=== PATIENT | female | born 1985 | race African-American/Black ===

== ENCOUNTER 2020-10-10 04:40 | Emergency (ER) | payer MEDICARE, OTHER ==
[~2020-10-10] VITALS: Ht 170.2 cm; Wt 47.6 kg
[2020-10-10 07:21] VITALS: BP 123/80
== END 2020-10-10 07:25 | disposition home or self-care (01) ==
LOC: EDUNIT# 04:40 → ER 04:40 → EDBD 04:40 → ER 07:25
DX: R07.89 Other chest pain (principal)
CPT/HCPCS: 71045; 93005

== ENCOUNTER 2023-05-20 11:14 | Emergency (ER) | payer MEDICARE, OTHER ==
[~2023-05-20] VITALS: Ht 180.3 cm; Wt 50.0 kg
[~2023-05-20 11:14] MED LIST: HYDR-4902 PO; IBUP1TAB5 PO
[2023-05-20 12:24] VITALS: BP 123/77; PULSE 84; RESP 18; TEMP 98.3; O2SAT 96
[2023-05-20] MEDS: TETRACAINE HCL 0.5% OPTH(EYE) SOLN 4ML LEFTEYE ONE ×2 (13:17→13:48)
[2023-05-20] MEDS ORDERED: METH-1181 PO (13:56)
[2023-05-20] MEDS ORDERED: IBUP-1454 PO (13:56)
[2023-05-20] MEDS ORDERED: KETOROLAC TROMETH 30 MG/ML 1ML VIAL IV ONE (14:00)
== END 2023-05-20 14:02 | disposition home or self-care (01) ==
LOC: EDBD 11:14 → ER 11:14
DX: S16.1XXA Strain of muscle, fascia and tendon at neck level, initial encounter (principal); S70.11XA Contusion of right thigh, initial encounter; E03.9 Hypothyroidism, unspecified; F17.210 Nicotine dependence, cigarettes, uncomplicated; Z79.1 Long term (current) use of non-steroidal anti-inflammatories (NSAID); Z79.899 Other long term (current) drug therapy; V49.9XXA Car occupant (driver) (passenger) injured in unspecified traffic accident, initial encounter; Y93.89 Activity, other specified; Y92.410 Unspecified street and highway as the place of occurrence of the external cause; Y99.8 Other external cause status
CPT/HCPCS: 72040; 96374; 99283; J1885

== ENCOUNTER 2023-10-29 14:30 | Emergency (ER) | payer MEDICARE, OTHER ==
[~2023-10-29] VITALS: Ht 172.7 cm; Wt 47.8 kg
[~2023-10-29 14:30] MED LIST changes: +IBUP-1454 PO; +METH-1181 PO
[2023-10-29 18:55] VITALS: BP 109/74; PULSE 110; TEMP 98.2
[2023-10-29] MEDS ORDERED: ALBUTEROL SULF 2.5 MG/0.5ML(0.5%) NEB SOLN NEB ONE (19:15)
[2023-10-29] MEDS ORDERED: IPRATROPIUM BROM 0.5 MG/2.5ML INH SOL NEB ONE (19:15)
[2023-10-29] MEDS ORDERED: guaiFENesin-CODEINE Liq 5 ML UD PO ONE (19:15)
[2023-10-29] MEDS ORDERED: DexAMETHasone SOD PHOS 10MG/1ML VIAL INJ IM ONE (19:15)
[2023-10-29] MEDS ORDERED: cefTRIAXone SOD 1,000 MG VL IM ONE (19:15)
[2023-10-29] MEDS ORDERED: ALBU108A5 IN (19:17)
[2023-10-29] MEDS ORDERED: BENZ200C64 PO (19:17)
[2023-10-29] MEDS ORDERED: AUG875T PO (19:17)
[2023-10-29] MEDS ORDERED: PRED20TA2 PO (19:17)
[2023-10-29 19:28] VITALS: RESP 19; O2SAT 97
== END 2023-10-29 15:41 | disposition home or self-care (01) ==
LOC: ER 14:30
DX: J18.9 Pneumonia, unspecified organism (principal); F17.210 Nicotine dependence, cigarettes, uncomplicated; F15.90 Other stimulant use, unspecified, uncomplicated; Z79.899 Other long term (current) drug therapy
CPT/HCPCS: 71045; 94640; 96372; 99284; J0696; J1100; J7644

== ENCOUNTER 2024-12-10 11:24 | Emergency (ER) | payer MEDICAID, OTHER ==
[~2024-12-10] VITALS: Ht 162.6 cm; Wt 53.0 kg
[~2024-12-10 11:24] MED LIST changes: +ALBU108A5 IN; +AUG875T PO; +BENZ200C64 PO; +PRED20TA2 PO
--- NOTE | 2024-12-10 11:35 | ECG ---
[facility] Test Date: 2024-12-10 Test Time: 11:34:18 Pat Name: FLETCHER RAMIREZ Department: ER Room: Gender: F Human Resource Management Instructor: MANNY : 1985 Requested By: JONAS CARROLL Order Number: [id number] Reading MD: Measurements Intervals [place] Rate: 55 P: 0 MO: 209 QRS: 79 QRSD: 71 T: 49 QT: 440 QTc: 421 Interpretive Statements Sinus rhythm Borderline prolonged MO interval RSR' in V1 or V2, probably normal variant Please click the below link to view image of tracing.
[2024-12-10 11:56] LABS: Hemoglobin 14.7 g/dL (12.2-16.2)
[2024-12-10 11:59] LABS: Hematocrit 42.3 % (36.0-46.0); Mean Corpuscular Hemoglobin 34.5 pg (28.0-32.0); Mean Corpuscular Hgb Conc. 34.7 g/dL (32.0-36.0); Mean Corpuscular Volume 99.6 fL (80.0-100.0); Platelet Count (auto) 164 10^3/uL (140-450); Red Blood Cells 4.25 10^6/uL (4.0-5.20); Red Cell Distribution Width 14.1 % (11.8-14.3); White Blood Cell 5.9 10^3/uL (4.4-10.8)
--- NOTE | 2024-12-10 12:01 | ED.PDOC ---
HPI Comments 39-year-old female who comes in with chief complaint of left-sided chest pain. The patient states that she has never had this pain in the past. The pain is substernal and rated as an 8/10. She states that the pain started when she woke up this morning. She denies any nausea, vomiting or cough. She is complaining of some generalized weakness and states that it feels like it is hard to take a deep breath. Chief Complaint: Chest Pain Time Seen by MD: 11:31 Primary Care Provider: none Reviewed Notes: Nurses Notes, Medications, Allergies (NKDA) Allergies: Coded Allergies: NO KNOWN ALLERGIES (Unverified , 10/10/20) Home Meds Active Scripts Ciprofloxacin Hcl (Cipro) 500 Mg Tab, 1 TAB PO BID, #14 TAB Prov:JONAS CARROLL MD 12/10/24 Benzonatate (Benzonatate) 200 Mg Cap, 1 CAP PO TID, #30 CAP As needed for cough Prov:LUIS FERNANDO HOLDER Q SORT LINE WORKER 10/29/23 Albuterol Sulfate (Albuterol Sulfate Hfa) 108 Mcg/Act Aer, 1 PUFF IN Q4HPRN PRN, #1 INH As needed for cough nasal congestion shortness of breath or wheeze Prov:LUIS FERNANDO HOLDER Q SORT LINE WORKER 10/29/23 Prednisone (Prednisone) 20 Mg Tab, 1 TAB PO DAILY for 5 Days, #5 TAB Start tomorrow with food Prov:LUIS FERNANDO HOLDER Q SORT LINE WORKER 10/29/23 Amoxicillin & Pot Clavulanate (AUGMENTIN TABLET) 875 Mg Tb, 1 TAB PO BID for 10 Days, #20 TAB Prov:LUIS FERNANDO HOLDER Q SORT LINE WORKER 10/29/23 Methocarbamol (Methocarbamol) 500 Mg Tab, 500 MG PO BID, #20 TAB Prov:ALEXUS DOCKERY 05/20/23 Ibuprofen (Ibuprofen) 600 Mg Tab, 1 TAB PO TID, #30 TAB Prov:ALEXUS DOCKERY 05/20/23 Hydrocodone-Acetaminophen (Hydrocodone Bitartrate/AC 5-325 mg) 1 Tab Tab, 1 TAB PO Q6HPRN PRN, #12 TAB 0 Refills Prov:RITA DHALIWAL 12/26/22 Ibuprofen Micronized (Ibuprofen) 600 Mg Tab, 600 MG PO Q8HPRN PRN, #30 TAB 0 Refills Prov:RITA DHALIWAL JEWEL FLAT SURFACER 12/26/22 Information Source: Patient Mode of Arrival: Ambulatory Severity: Moderate Timing: Hours Duration: Since onset Prehospital treatment: None Location: Substernal Radiation: No Radiation Quality: Sharp Onset: At Rest Cardiac Risk Factors: Smoker PE Risk Factors: None History of: None Modifying Factors: Nothing Associated Signs and Symptoms: Palpitations Past Medical History PAST MEDICAL HISTORY: Thyroid Surgical History: Denies all surgeries CERTIFIED FAMILY MEDIATOR History: No Pertinent CERTIFIED FAMILY MEDIATOR History Family History Family History: Family hx of Cancer Social History Smoker: Cigarettes Alcohol: Occasionally Drugs: Marijuana Lives In: Home Constitutional: denies: chills, diaphoresis, fatigue, fever, malaise, sweats, weakness, others EENTM: denies: blurred vision, double vision, ear bleeding, ear discharge, ear drainage, ear pain, ear ringing, eye pain, eye redness, hearing loss, mouth pain, mouth swelling, nasal discharge, nose bleeding, nose congestion, nose pain, photophobia, tearing, throat pain, throat swelling, voice changes, others Respiratory: denies: cough, hemoptysis, orthopnea, SOB at rest, shortness of breath, SOB with excertion, stridor, wheezing, others Cardiovascular: reports: chest pain; denies: dizzy spells, diaphoresis, Dyspnea on exertion, edema, irregular heart beat, left arm pain, lightheadedness, palpitations, PND, syncope, others Gastrointestinal: denies: abdomen distended, abdominal pain, blood streaked bowels, constipated, diarrhea, dysphagia, difficulty swallowing, hematemesis, melena, nausea, poor appetite, poor fluid intake, rectal bleeding, rectal pain, vomiting, others Genitourinary: denies: abnormal vagina bleeding, burning, dyspareunia, dysuria, flank pain, frequency, hematuria, incontinence, pain, , vagina discharge, urgency, others Neurological: denies: dizziness, fainting, headache, left sided numbness, left sided weakness, numbness, paresthesia, pre-existing deficit, right sided numbness, right sided weakness, seizure, speech problems, tingling, tremors, weakness, others Musculoskeletal: denies: back pain, gout, joint pain, joint swelling, muscle pain, muscle stiffness, neck pain, others Integumetry: denies: bruises, change in color, change in hair/nails, dryness, laceration, lesions, lumps, rash, wounds, others Allergic/Immunocompromised: denies: Difficulty Healing, Frequent Infections, Hives, Itching, others Hematologic/Lymphatic: denies: anemia, blood clots, easy bleeding, easy bruising, swollen glands, others Endocrine: denies: excessive hunger, excessive sweating, excessive thirst, excessive urination, flushing, intolerance to cold, intolerance to heat, unexplained weight gain, unexplained weight loss, others Psychiatric: denies: anxiety, bipolar disorder, depression, hopeless, panic disorder, schizophrenia, sleepless, suicidal, others Physical Exam General Appearance: Mild Distress, Thin HEENT: Normal ENT Inspection, Pharynx Normal, TMs Normal Neck: Full Range of Motion, Non-Tender, Normal, Normal Inspection Respiratory: Lungs Clear, No Accessory Muscle Use, No Respiratory Distress, Normal Breath Sounds, Other (Tenderness to the left chest) Cardiovascular: Bradycardia, No Edema, No JVD, No Murmur, No Gallop Breast Exam: Deferred Gastrointestinal: No Organomegaly, Non Tender, No Pulsatile Mass, Normal Bowel Sounds, Soft Genitalia: Deferred Pelvic: Deferred Rectal: Deferred Extremities: No calf tenderness, Normal capillary refill, Normal inspection, Normal range of motion, Non-tender, No pedal edema Musculoskeletal : Apperance: Normal Neurologic: Alert, retail business development manager II-XII nml as Tested, No Motor Deficits, Normal Affect, Normal Mood, No Sensory Deficits Cerebellar Function: Normal Reflexes: Normal Skin: Dry, Normal Color, Warm Lymphatic: No Adenopathy EKG EKG : Pulse Rate (adult): 55 [place]: Normal Cardiac Rhythm: NSR Block: None ST: Nonsp Was a procedure done? Was a procedure done?: No CP Differential Dx Differential Diagnosis: Angina, [place], Pulmonary Embolus Differential Diagnosis: CHF Differential Diagnosis: Pericarditis X-Ray, Labs, Meds, VS Vital Signs Date Time Temp Pulse Resp B/P (MAP) Pulse Ox O2 Delivery O2 Flow Rate FiO2 12/10/24 15:53 54 14 112/66 12/10/24 15:02 67 17 104/73 12/10/24 14:40 98.3 67 17 104/73 (83) 100 98.3 12/10/24 12:24 55 12/10/24 12:20 Room Air* 0 21 12/10/24 12:13 98.3 62 18 104/64 (77) 96 98.3 12/10/24 11:40 97.9 66 17 130/74 (92) 100 12/10/24 11:34 55 Lab Test 12/10/24 12:42 12/10/24 12:15 12/10/24 11:35 Range/Units Troponin I High Sensitivity < 3 L < 3 L </=34 ng/L Urine Color Yellow Yellow Urine Clarity Cloudy H Clear Urine pH 7.5 5.0-9.0 Urine Specific [place] 1.017 1.001-1.035 Urine Protein Trace H Negative Urine Ketones Negative Negative Urine Blood 2+ H Negative /uL Urine Nitrite Negative Negative Urine Bilirubin Negative Negative Urine Urobilinogen Normal Negative mg/dL Urine Leukocyte Esterase 2+ Negative /uL Urine RBC 7 0 - 4 /hpf Urine Microscopic WBC 43 H 0-5 /HPF Urine Squamous Epithelial Cells Many <5 /hpf Urine Bacteria Mod H None Seen /hpf Urine Glucose Normal Normal mg/dL White Blood Count 5.9 4.4-10.8 10^3/uL Red Blood Count 4.25 4.0-5.20 10^6/uL Hemoglobin 14.7 12.2-16.2 g/dL Hematocrit 42.3 36.0-46.0 % Mean Corpuscular Volume 99.6 80.0-100.0 fL Mean Corpuscular Hemoglobin 34.5 H 28.0-32.0 pg Mean Corpuscular Hemoglobin Concent 34.7 32.0-36.0 g/dL Red Cell Distribution Width 14.1 11.8-14.3 % Platelet Count 164 140-450 10^3/uL Mean Platelet Volume 9.0 6.9-10.8 fL Neutrophils (%) (Auto) 37.0-80.0 % Lymphocytes (%) (Auto) 10.0-50.0 % Monocytes (%) (Auto) 0.0-12.0 % Basophils (%) (Auto) 0.0-2.0 % Neutrophils # (Auto) 1.6-8.6 10 ^3/uL Lymphocytes # (Auto) 0.4-5.4 10 ^3/uL Monocytes # (Auto) 0-1.3 10 ^3/uL Differential Total Cells Counted 100.0 100 Neutrophils % (Manual) 27 L 37.0-80.0 Band Neutrophils % (Manual) 0 Lymphocytes % (Manual) 61 H 10.0-50.0 Monocytes % (Manual) 10 0-12 Eosinophils % (Manual) 1 0-7 Basophils % (Manual) 0 0.0-2.0 Metamyelocytes % (manual) 0 Myelocytes % (Manual) 0 Promyelocytes % (Manual) 0 Blast Cells % (Manual) 0 Reactive Lymphocytes 1 Platelet Estimate Adequate Red Blood Cell Morphology Normal D-Dimer, Quantitative < 0.19 0.0-0.49 mg/L FEU Sodium Level 140 136-145 mmol/L Potassium Level 3.7 3.5-5.1 mmol/L Chloride Level 110 H 98-107 mmol/L Carbon Dioxide Level 28 20-31 mmol/L Anion Gap 2 L 5-15 Blood Urea Nitrogen 8 L 9-23 mg/dL Creatinine 0.77 0.550-1.02 mg/dL Glomerular Filtration Rate Calc 99 >90 mL/min BUN/Creatinine Ratio 10.4 10.0-20.0 Serum Glucose 82 74-106 mg/dL Calcium Level 9.7 8.7-10.4 mg/dL Current Medications Medications (Trade) Dose Ordered Sig/Dionne Route Start Time Stop Time Status Last Admin Aspirin 162 mg ONCE ONCE PO 12/10/24 11:45 12/10/24 11:46 DC 12/10/24 12:17 Morphine Sulfate 4 mg ONCE ONCE IV 12/10/24 14:00 12/10/24 14:01 DC 12/10/24 15:02 Ondansetron HCl (Zofran) 4 mg ONCE ONCE IV 12/10/24 14:00 12/10/24 14:01 DC 12/10/24 14:58 Ceftriaxone Sodium 50 ml @ 100 mls/hr ONCE ONCE IV 12/10/24 15:15 12/10/24 15:44 DC 12/10/24 15:18 The chest x-ray is negative The patient was given morphine for the pain and Zofran for the nausea The patient was also given aspirin 162 mg by mouth The patient states that she is feeling much better at this time. The chemistry panel is within normal limits The CBC is within normal limits The urine test is positive for UTI The patient was being discharged with a diagnosis of musculoskeletal chest pain as well as UTI Images Reviewed?: Images reviewed and evaluated by me Time of 1ST Reevaluation: 15:58 Reevaluation 1ST: Improved Patient Education/Counseling: Diagnosis, Treatment, Prognosis, Need For Follow Up Family Education/Counseling: No Family Present Departure 1 Departure Time of Disposition: 15:58 Impression: Primary Impression: UTI (urinary tract infection) Qualified Codes: N30.00 - Acute cystitis without hematuria Additional Impression: Musculoskeletal chest pain Disposition: 01 HOME / SELF CARE / HOMELESS Condition: Fair e-Prescriptions Ciprofloxacin Hcl (Cipro) 500 Mg Tab 1 TAB PO BID, #14 TAB Prov: JONAS CARROLL MD 12/10/24 Discharged With: Self Critical Care Note Critical Care Time?: No Stability Stability form required: No Heart Score Heart Score: Heart Score Response (Comments) Value History Slightly Suspicious 0 EKG Normal 0 Age <45 0 Risk Factors 1 or 2 risk factors 1 Troponin Normal limit 0 Total 1 JONAS CARROLL MD Dec 10, 2024 12:01
[2024-12-10 12:04] LABS: Potassium 3.7 mmol/L (3.5-5.1); Sodium 140 mmol/L (136-145)
[2024-12-10 12:05] LABS: Anion Gap 2 (5-15); Calcium 9.7 mg/dL (8.7-10.4); Carbon Dioxide 28 mmol/L (20-31)
[2024-12-10 12:06] LABS: Chloride 110 mmol/L (98-107)
[2024-12-10 12:10] LABS: BUN/Creatinine Ratio 10.4 (10.0-20.0); Band Neutrophils % (manual) 0; Basophils % (manual) 0 (0.0-2.0); Blast Cells 0; Glucose 82 mg/dL (74-106); Metamyelocytes % 0; Myelocytes % 0; Promyelocytes % 0
[2024-12-10 12:12] LABS: Blood Urea Nitrogen 8 mg/dL (9-23)
[2024-12-10] MEDS: ASPirin 81 mg TAB PO ONE (12:17)
--- NOTE | 2024-12-10 12:26 | ECG ---
[facility] Test Date: 2024-12-10 Test Time: 12:24:31 Pat Name: FLETCHER RAMIREZ Department: ER Room: Gender: F Security Orderly: WONG : 1985 Requested By: JONAS CARROLL Order Number: [id number] Reading MD: Measurements Intervals [place] Rate: 55 P: 58 [place]: 172 QRS: 67 QRSD: 80 T: 55 QT: 448 QTc: 429 Interpretive Statements Sinus rhythm RSR' in V1 or V2, probably normal variant ST elevation, consider inferior injury Please click the below link to view image of tracing.
--- NOTE | 2024-12-10 12:27 | DVH ---
EXAM: XY CHEST TWO VIEWS ROUTINE HISTORY: cp COMPARISON: Chest x-ray dated 10/29/2023. TECHNIQUE: Frontal and lateral views of the chest were performed. FINDINGS: No pneumothorax, pulmonary edema, pleural effusions, or consolidative infiltrates. The lungs are hype rexpanded. The heart is not enlarged. No fractures are identified about the bony thorax. There is th oracic dextroscoliosis. IMPRESSION: No acute intrathoracic process.
[2024-12-10 12:35] LABS: Eosinophils % (manual) 1 (0-7); Lymphocytes % (manual) 61 (10.0-50.0); Monocytes % (manual) 10 (0-12); Platelet Estimate Adequate; RBC Morphology Normal; Reactive Lymphocytes 1
[2024-12-10 13:08] LABS: Urine Bacteria MOD /hpf (None Seen); Urine Blood 2+ /uL (Negative); Urine Protein, UAD TRACE (Negative); Urine Specific Gravity 1.017 (1.001-1.035); Urine Squamous Epithelial Cell MANY /hpf (<5); Urine Urobilinogen Normal (Negative); Urine WBC 43 /HPF (0-5); Urine pH 7.5 (5.0-9.0)
[2024-12-10 13:11] LABS: Urine Color Yellow (Yellow)
[2024-12-10 13:12] LABS: Urine Clarity Cloudy (Clear)
[2024-12-10 14:40] VITALS: TEMP 98.3; O2SAT 100
[2024-12-10] MEDS: ONDANSETRON HCL 4 MG/2 ML VIAL IV ONE (14:58)
[2024-12-10] MEDS: MORPHINE SULFATE 4 MG/ML SYR/VIAL IV ONE (15:02)
[2024-12-10] MEDS: cefTRIAXone 1GM/50ML D5W 50 ML IV ONE (15:18)
[2024-12-10 15:53] VITALS: BP 112/66; RESP 14
[2024-12-10 15:59] VITALS: PULSE 55
[2024-12-10] MEDS ORDERED: CIPR-173 PO (16:00)
== END 2024-12-10 16:26 | disposition home or self-care (01) ==
LOC: ER 11:24
DX: N39.0 Urinary tract infection, site not specified (principal); R07.89 Other chest pain; E03.9 Hypothyroidism, unspecified; F17.210 Nicotine dependence, cigarettes, uncomplicated; F12.90 Cannabis use, unspecified, uncomplicated; Z79.899 Other long term (current) drug therapy
CPT/HCPCS: 36415; 71046; 80048; 81001; 84484; 85007; 85027; 85379; 93005; 96365; 96375; 99285; J0696; J2270; J2405

== ENCOUNTER 2025-03-18 06:05 | Inpatient (IN) | payer MEDICAID ==
[~2025-03-18] VITALS: Ht 170.2 cm; Wt 54.0 kg
[~2025-03-18 06:05] MED LIST changes: +CIPR-173 PO
--- NOTE | 2025-03-18 06:21 | ED.PDOC ---
History of Present Illness HPI Comments 40-year-old female with no reported PMHx brought in by EMS presents with a chief complaint of chest pain x onset 0200 this morning. Patient states that her pain is localized to her substernal region, nonradiating, describes as sharp, and rates her pain a 8/10. Patient mentions that she was asleep when onset of symptoms began and woke her up. Patient was given ASA IV and Fentanyl IV by EMS en route along with IV fluids. Patients EKG showed Acute ND per EMS and their repeat showed mild ST elevation. [facility] EKG was performed on arrival and was sent to STEMI doctor, Dr. Beck, who ruled out a STEMI. Chief Complaint: Chest Pain Time Seen by MD: 06:08 Primary Care Provider: none Reviewed Notes: Medications, Allergies Allergies: Coded Allergies: NO KNOWN ALLERGIES (Unverified , 10/10/20) Home Meds Active Scripts Ciprofloxacin Hcl (Cipro) 500 Mg Tab, 1 TAB PO BID, #14 TAB Prov:JONAS CARROLL MD 12/10/24 Benzonatate (Benzonatate) 200 Mg Cap, 1 CAP PO TID, #30 CAP As needed for cough Prov:LUIS FERNANDO HOLDER Q TALENT ACQUISITION RELATIONSHIP MANAGER 10/29/23 Albuterol Sulfate (Albuterol Sulfate Hfa) 108 Mcg/Act Aer, 1 PUFF IN Q4HPRN PRN, #1 INH As needed for cough nasal congestion shortness of breath or wheeze Prov:FERNIE HOLDERA Q TALENT ACQUISITION RELATIONSHIP MANAGER 10/29/23 Prednisone (Prednisone) 20 Mg Tab, 1 TAB PO DAILY for 5 Days, #5 TAB Start tomorrow with food Prov:LUIS FERNANDO HOLDER Q TALENT ACQUISITION RELATIONSHIP MANAGER 10/29/23 Amoxicillin & Pot Clavulanate (AUGMENTIN TABLET) 875 Mg Tb, 1 TAB PO BID for 10 Days, #20 TAB Prov:LUIS FERNANDO HOLDER Q TALENT ACQUISITION RELATIONSHIP MANAGER 10/29/23 Methocarbamol (Methocarbamol) 500 Mg Tab, 500 MG PO BID, #20 TAB Prov:ALEXUS DOCKERY 05/20/23 Ibuprofen (Ibuprofen) 600 Mg Tab, 1 TAB PO TID, #30 TAB Prov:ALEXUS DOCKERY 05/20/23 Hydrocodone-Acetaminophen (Hydrocodone Bitartrate/AC 5-325 mg) 1 Tab Tab, 1 TAB PO Q6HPRN PRN, #12 TAB 0 Refills Prov:RITA DHALIWAL [facility] 12/26/22 Ibuprofen Micronized (Ibuprofen) 600 Mg Tab, 600 MG PO Q8HPRN PRN, #30 TAB 0 Refills Prov:RITA DHALIWAL [facility] 12/26/22 Information Source: Patient, Emergency Med Personnel Mode of Arrival: EMS Severity: Moderate Timing: Hours Duration: Since onset Prehospital treatment: 12 Lead EKG, ASA, Baseball Coach Past Medical History PAST MEDICAL HISTORY: Thyroid Surgical History: Denies all surgeries SENIOR STACK ENGINEER History: No Pertinent SENIOR STACK ENGINEER History Family History Family History: Family hx of Cancer Social History Smoker: Cigarettes Alcohol: Occasionally Drugs: Marijuana Lives In: Home Constitutional: denies: chills, diaphoresis, fatigue, fever, malaise, sweats, weakness, others EENTM: denies: blurred vision, double vision, ear bleeding, ear discharge, ear drainage, ear pain, ear ringing, eye pain, eye redness, hearing loss, mouth pain, mouth swelling, nasal discharge, nose bleeding, nose congestion, nose pain, photophobia, tearing, throat pain, throat swelling, voice changes, others Respiratory: denies: cough, hemoptysis, orthopnea, SOB at rest, shortness of breath, SOB with excertion, stridor, wheezing, others Cardiovascular: reports: chest pain; denies: dizzy spells, diaphoresis, Dyspnea on exertion, edema, irregular heart beat, left arm pain, lightheadedness, palpitations, PND, syncope, others Gastrointestinal: denies: abdomen distended, abdominal pain, blood streaked bowels, constipated, diarrhea, dysphagia, difficulty swallowing, hematemesis, melena, nausea, poor appetite, poor fluid intake, rectal bleeding, rectal pain, vomiting, others Genitourinary: denies: abnormal vagina bleeding, burning, dyspareunia, dysuria, flank pain, frequency, hematuria, incontinence, pain, , vagina discharge, urgency, others Neurological: denies: dizziness, fainting, headache, left sided numbness, left sided weakness, numbness, paresthesia, pre-existing deficit, right sided numbness, right sided weakness, seizure, speech problems, tingling, tremors, weakness, others Musculoskeletal: denies: back pain, gout, joint pain, joint swelling, muscle pain, muscle stiffness, neck pain, others Integumetry: denies: bruises, change in color, change in hair/nails, dryness, laceration, lesions, lumps, rash, wounds, others Allergic/Immunocompromised: denies: Difficulty Healing, Frequent Infections, Hives, Itching, others Hematologic/Lymphatic: denies: anemia, blood clots, easy bleeding, easy bruising, swollen glands, others Endocrine: denies: excessive hunger, excessive sweating, excessive thirst, excessive urination, flushing, intolerance to cold, intolerance to heat, unexplained weight gain, unexplained weight loss, others Psychiatric: denies: anxiety, bipolar disorder, depression, hopeless, panic disorder, schizophrenia, sleepless, suicidal, others All Other Systems: Reviewed and Negative Physical Exam General Appearance: No Apparent Distress, Normal HEENT: Normal ENT Inspection, Pharynx Normal, TMs Normal Neck: Full Range of Motion, Non-Tender, Normal, Normal Inspection Respiratory: Chest Non-Tender, Lungs Clear, No Accessory Muscle Use, No Respiratory Distress, Normal Breath Sounds Cardiovascular: Bradycardia, No Edema, No JVD, No Murmur, No Gallop, Normal Peripheral Pulses Breast Exam: Deferred Gastrointestinal: No Organomegaly, Non Tender, No Pulsatile Mass, Normal Bowel Sounds, Soft Genitalia: Deferred Pelvic: Deferred Rectal: Deferred Extremities: No calf tenderness, Normal capillary refill, Normal inspection, Normal range of motion, Non-tender, No pedal edema Musculoskeletal : Apperance: Normal Neurologic: Alert, director drug safety II-XII nml as Tested, No Motor Deficits, Normal Affect, Normal Mood, No Sensory Deficits Cerebellar Function: Normal Reflexes: Normal Skin: Dry, Normal Color, Warm Lymphatic: No Adenopathy Was a procedure done? Was a procedure done?: No Differential Dx Considerations may include: ACS, CVA, electrolyte abnormalities, infectious etiology, pneumonia, pericarditis X-Ray, Labs, Meds, VS Vital Signs Date Time Temp Pulse Resp B/P (MAP) Pulse Ox O2 Delivery O2 Flow Rate FiO2 03/18/25 07:00 39 03/18/25 06:45 46 17 100 Room Air* 0 21 03/18/25 06:45 98.2 46 17 141/58 (85) 100 98.2 03/18/25 06:06 44 03/18/25 06:05 98.3 47 18 160/103 (122) 99 98.3 Lab Test 03/18/25 07:30 03/18/25 06:33 Range/Units Troponin I High Sensitivity 3 L < 3 L </=34 ng/L White Blood Count 8.7 4.4-10.8 10^3/uL Red Blood Count 4.23 4.0-5.20 10^6/uL Hemoglobin 14.2 12.2-16.2 g/dL Hematocrit 41.9 36.0-46.0 % Mean Corpuscular Volume 99.2 80.0-100.0 fL Mean Corpuscular Hemoglobin 33.5 H 28.0-32.0 pg Mean Corpuscular Hemoglobin Concent 33.8 32.0-36.0 g/dL Red Cell Distribution Width 14.5 H 11.8-14.3 % Platelet Count 145 140-450 10^3/uL Mean Platelet Volume 9.1 6.9-10.8 fL Neutrophils (%) (Auto) 62.7 37.0-80.0 % Lymphocytes (%) (Auto) 29.6 10.0-50.0 % Monocytes (%) (Auto) 6.6 0.0-12.0 % Eosinophils (%) (Auto) 0.6 0.0-7.0 % Basophils (%) (Auto) 0.5 0.0-2.0 % Neutrophils # (Auto) 5.4 1.6-8.6 10 ^3/uL Lymphocytes # (Auto) 2.6 0.4-5.4 10 ^3/uL Monocytes # (Auto) 0.6 0-1.3 10 ^3/uL Eosinophils # (Auto) 0.1 0-0.8 10 ^3/uL Basophils # (Auto) 0 0-0.2 10 ^3/uL Nucleated Red Blood Cells 0.1 % Sodium Level 141 136-145 mmol/L Potassium Level 4.1 3.5-5.1 mmol/L Chloride Level 110 H 98-107 mmol/L Carbon Dioxide Level 23 20-31 mmol/L Anion Gap 8 5-15 Blood Urea Nitrogen 9 9-23 mg/dL Creatinine 0.72 0.550-1.02 mg/dL Glomerular Filtration Rate Calc 107 >90 mL/min BUN/Creatinine Ratio 12.5 10.0-20.0 Serum Glucose 107 H 74-106 mg/dL Calcium Level 8.9 8.7-10.4 mg/dL B-Type Natriuretic Peptide 32.58 0-100 pg/mL Current Medications Medications (Trade) Dose Ordered Sig/Dionne Route Start Time Stop Time Status Last Admin Sodium Chloride 1,000 ml @ 1,000 mls/hr Q1H ONCE IV 03/18/25 06:30 03/18/25 07:29 DC 03/18/25 06:54 Ketorolac Tromethamine (Toradol Injection) 15 mg ONCE ONCE IV 03/18/25 06:30 03/18/25 06:31 DC 03/18/25 06:54 Time of 1ST Reevaluation: 06:38 Reevaluation 1ST: Unchanged Patient Education/Counseling: Diagnosis, Treatment, Need For Follow Up Family Education/Counseling: No Family Present Departure 1 Departure Time of Disposition: 08:07 (Patient presented with chest pain that was concerning for possible STEMI, ACS, PE, Pneumonia, Muscle Strain, COPD, Dissection. Data: 1. I ordered and reviewed the result of at least 3 labs including a CBC, BMP, and Troponin. 2. I independently interpreted the following tests: EKG which shows Mobitz 1 heart block and Chest X-ray which shows benign chest.Risk:This patient has a high risk of morbidity due to further diagnostic testing or treatment and may suffer from an acute cardiac or respiratory disorder. Workup reveals concern for ACS + heart block and patient should be admitted for further workup and possible expert consultation. ) Impression: Primary Impression: Acute chest pain Additional Impressions: Mobitz type 1 second degree AV block Symptomatic bradycardia Disposition: 09 ADMITTED INPATIENT Admit to: Tele Condition: Guarded Critical Care Note Critical Care Time?: Yes Critical care comment: Acute chest pain Authorized and Performed by: Mamta Melton MD Total critical care time: Approximately 44 minutes Due to a high probability of clinically significant, life threatening deterioration, the patient required my highest level of preparedness to intervene emergently and I personally spent this critical care time directly and personally managing the patient. This critical care time included obtaining a history; examining the patient; pulse oximetry; ordering and review of studies; arranging urgent treatment with development of a management plan; evaluation of patient's response to treatment; frequent reassessment; and, discussions with other providers. This critical care time was performed to assess and manage the high probability of imminent, life-threatening deterioration that could result in multi-organ failure. It was exclusive of separately billable procedures and treating other patients and teaching time. Please see my other sections and the rest of the note for further information on patient assessment and treatment. Stability Stability form required: No I personally scribed for MAMTA MELTON MD ([email or web address]) on 03/18/25 at 06:21. Electronically submitted by Samm Portillo ([email or web address]). MAMTA MELTON MD Mar 18, 2025 06:21
[2025-03-18 06:45] VITALS: PULSE 46; RESP 17; O2SAT 100
[2025-03-18 06:53] LABS: Potassium 4.1 mmol/L (3.5-5.1); Sodium 141 mmol/L (136-145)
--- NOTE | 2025-03-18 06:53 | DVH ---
EXAM: XR Chest, 1 View CLINICAL INDICATION: Pain TECHNIQUE: Frontal view of the chest. COMPARISON: No relevant prior studies available. FINDINGS: LUNGS AND PLEURAL SPACES: Unremarkable. No consolidation. No pneumothorax. HEART: Unremarkable. No cardiomegaly. MEDIASTINUM: Unremarkable. Normal mediastinal contour. BONES/JOINTS: Unremarkable. No acute fracture. IMPRESSION: No acute cardiopulmonary process.
[2025-03-18 06:54] LABS: Anion Gap 8 (5-15); Calcium 8.9 mg/dL (8.7-10.4); Carbon Dioxide 23 mmol/L (20-31)
[2025-03-18] MEDS: KETOROLAC TROMETH 30 MG/ML 1ML VIAL IV ONE ×2 (06:54→15:30)
[2025-03-18] MEDS: SODIUM CHLORIDE 0.9% 1,000 ML IV ONE (06:54)
[2025-03-18 06:55] LABS: Chloride 110 mmol/L (98-107)
[2025-03-18 06:59] LABS: BUN/Creatinine Ratio 12.5 (10.0-20.0)
[2025-03-18 07:01] LABS: Blood Urea Nitrogen 9 mg/dL (9-23); Glucose 107 mg/dL (74-106)
--- NOTE | 2025-03-18 07:03 | ECG ---
[facility] Test Date: 2025-03-18 Test Time: 07:00:59 Pat Name: FLETCHER RAMIREZ Department: ED Room: [address] [place] [address] Gender: F Display Decorator: ANDI : 1985 Requested By: MAMTA COELHO Order Number: [id number] Reading MD: Wei Beck Measurements Intervals [place] Rate: 39 P: 51 AL: 274 QRS: 58 QRSD: 89 T: 66 QT: 481 QTc: 388 Interpretive Statements Second degree AV block, Mobitz II ST elevation suggests acute pericarditis Electronically Signed On 03-19-2025 17:35:48 PDT by Wei Beck Please click the below link to view image of tracing.
--- NOTE | 2025-03-18 07:07 | ECG ---
[facility] Test Date: 2025-03-18 Test Time: 06:06:04 Pat Name: FLETCHER RAMIREZ Department: ED Room: [address] [place] [address] Gender: F House Mover Helper: ANDI : 1985 Requested By: MAMTA COELHO Order Number: [id number] Reading MD: Wei Beck Measurements Intervals [place] Rate: 44 P: 62 [place]: 197 QRS: 60 QRSD: 94 T: 70 QT: 490 QTc: 420 Interpretive Statements Sinus bradycardia early repolarization throughout the inferior lateral leads. Electronically Signed On 03-19-2025 17:34:51 PDT by Wei Beck Please click the below link to view image of tracing.
[2025-03-18 07:13] LABS: Basophils # (auto) 0 10 ^3/uL (0-0.2); Basophils % (auto) 0.5 % (0.0-2.0); Eosinophils # (auto) 0.1 10 ^3/uL (0-0.8); Eosinophils % (auto) 0.6 % (0.0-7.0); Hematocrit 41.9 % (36.0-46.0); Hemoglobin 14.2 g/dL (12.2-16.2); Lymphocytes # (auto) 2.6 10 ^3/uL (0.4-5.4); Lymphocytes % (auto) 29.6 % (10.0-50.0); Mean Corpuscular Hemoglobin 33.5 pg (28.0-32.0); Mean Corpuscular Hgb Conc. 33.8 g/dL (32.0-36.0); Mean Corpuscular Volume 99.2 fL (80.0-100.0); Monocytes # (auto) 0.6 10 ^3/uL (0-1.3); Monocytes % (auto) 6.6 % (0.0-12.0); Neutrophils # (auto) 5.4 10 ^3/uL (1.6-8.6); Neutrophils % (auto) 62.7 % (37.0-80.0); Nucleated Red Blood Cells % 0.1 %; Platelet Count (auto) 145 10^3/uL (140-450); Red Blood Cells 4.23 10^6/uL (4.0-5.20); Red Cell Distribution Width 14.5 % (11.8-14.3); White Blood Cell 8.7 10^3/uL (4.4-10.8)
[2025-03-18] MEDS ORDERED: ACETAMINOPHEN 325 MG TAB PO PRN (10:00)
[2025-03-18] MEDS ORDERED: DOCUSATE SOD 100 MG CAP PO PRN (10:00)
[2025-03-18] MEDS ORDERED: HYDROcodone-ACET 5/325MG TAB PO PRN (10:00)
[2025-03-18] MEDS ORDERED: MORPHINE SULFATE INJ 2 MG/ml SYRG IV PRN (10:00)
[2025-03-18] MEDS ORDERED: NITROGLYCERIN 0.4 MG SL TAB SL PRN (10:00)
--- NOTE | 2025-03-18 10:06 | DVHHP2 ---
History of Present Illness Reason for Visit: Chest pain History of Present Illness Zoe Wallace is a 40-year-old female with no significant past medial history who comes to the hospital with complaints of chest pain. States the pain started around 0200 and woke her up from her sleep. She states the pain was localized to her left chest, radiated to her left arm, with associated nausea, and diaphoresis. States she felt palpitations, and shortness of breath for about 10 minutes. Her pain continued to worsen until about 0330, prompting her to come to the hospital. Patient states she drinks about 3 shots and wine about 6days/week. States she did not have anything to drink last night. Past Surgical History: None Smoke: <1 pack per day ALCOHOL: heavy Drugs: Marijuana Lives: with Family Domestic Violence: Neg Review of Systems Constitutional: Yes: Sweats; No: Fever, Chills, Weakness, Malaise, Other Eyes: No: Pain, Vision change, Conjunctivae inflammation, Eyelid inflammation, Other, Redness ENT: No: Ear pain, Ear discharge, Nose pain, Nose discharge, Nose congestion, Mouth pain, Mouth swelling, Throat pain, Throat swelling, Other Respiratory: No: Cough, Dry, Shortness of breath, SOB with excertion, Wheezing, Hemoptysis, Pleuritic Pain, Sputum, Wheezing, Other Cardiovascular: Chest Pain, Palpitations; No: Orthopnea, Paroxysmal Noc. Dyspnea, Edema, Lt Headedness, Other Gastrointestinal: Nausea; No: Vomiting, Abdominal Pain, Diarrhea, Constipation, Melena, Hematochezia, Other Genitourinary: No Dysuria, No Frequency, No Incontinence, No Hematuria, No Retention, No Other Musculoskeletal: No: other, neck pain, shoulder pain, arm pain, back pain, hand pain, leg pain, foot pain Skin: No: Rash, Lesions, Jaundice, Bruising, Other Neurological: No: Weakness, Numbness, Incoordination, Change in speech, Confusion, Seizures, Other Allergies: Coded Allergies: NO KNOWN ALLERGIES (Unverified , 10/10/20) Medications Current Medications Medications Dose Ordered Sig/Dionne Route Start Time Stop Time Status Last Admin Dose Admin Acetaminophen/ Hydrocodone Bitart 1 tab Q4HP PRN PO 03/18/25 10:00 UNV Ondansetron HCl 4 mg Q4HP PRN IV 03/18/25 10:00 UNV Docusate Sodium 100 mg BIDPRN PRN PO 03/18/25 10:00 UNV Acetaminophen 650 mg Q6HP PRN PO 03/18/25 10:00 UNV Morphine Sulfate 2 mg Q4HPRN PRN IV 03/18/25 10:00 UNV Nitroglycerin 0.4 mg Q5MINP PRN SL 03/18/25 10:00 UNV Morphine Sulfate 2 mg Q30M PRN IV 03/18/25 10:00 UNV Exam Vital Signs Vital Signs Date Time Temp Pulse Resp B/P (MAP) Pulse Ox O2 Delivery O2 Flow Rate FiO2 03/18/25 09:18 49 03/18/25 08:00 97.6 18 106/44 (64) 98 97.6 03/18/25 08:00 Room Air* 0 21 General Appearance: Alert, Oriented X3, Cooperative, mild distress HEENT: Atraumatic, PERRLA Respiratory: Clear to auscultation, Normal air movement Cardiovascular: Normal S1, Normal S2, Other (SB) Abdominal: Normal bowel sounds, Soft, No tenderness, No hepatospenomegaly Extremities: No clubbing, No cyanosis, No edema, Normal pulses, No tenderness/swelling Skin: No rashes, No breakdown, No significant lesion Neuro: Normal gait, Normal speech, Strength at 5/5 X4 ext, Normal tone Psych/Mental Status: Mental status NL, Mood NL Labs/Xrays Labs Test 03/18/25 07:30 03/18/25 06:33 Range/Units Troponin I High Sensitivity 3 L </=34 ng/L White Blood Count 8.7 4.4-10.8 10^3/uL Red Blood Count 4.23 4.0-5.20 10^6/uL Hemoglobin 14.2 12.2-16.2 g/dL Hematocrit 41.9 36.0-46.0 % Mean Corpuscular Volume 99.2 80.0-100.0 fL Mean Corpuscular Hemoglobin 33.5 H 28.0-32.0 pg Mean Corpuscular Hemoglobin Concent 33.8 32.0-36.0 g/dL Red Cell Distribution Width 14.5 H 11.8-14.3 % Platelet Count 145 140-450 10^3/uL Mean Platelet Volume 9.1 6.9-10.8 fL Neutrophils (%) (Auto) 62.7 37.0-80.0 % Lymphocytes (%) (Auto) 29.6 10.0-50.0 % Monocytes (%) (Auto) 6.6 0.0-12.0 % Eosinophils (%) (Auto) 0.6 0.0-7.0 % Basophils (%) (Auto) 0.5 0.0-2.0 % Neutrophils # (Auto) 5.4 1.6-8.6 10 ^3/uL Lymphocytes # (Auto) 2.6 0.4-5.4 10 ^3/uL Monocytes # (Auto) 0.6 0-1.3 10 ^3/uL Eosinophils # (Auto) 0.1 0-0.8 10 ^3/uL Basophils # (Auto) 0 0-0.2 10 ^3/uL Nucleated Red Blood Cells 0.1 % Sodium Level 141 136-145 mmol/L Potassium Level 4.1 3.5-5.1 mmol/L Chloride Level 110 H 98-107 mmol/L Carbon Dioxide Level 23 20-31 mmol/L Anion Gap 8 5-15 Blood Urea Nitrogen 9 9-23 mg/dL Creatinine 0.72 0.550-1.02 mg/dL Glomerular Filtration Rate Calc 107 >90 mL/min BUN/Creatinine Ratio 12.5 10.0-20.0 Serum Glucose 107 H 74-106 mg/dL Calcium Level 8.9 8.7-10.4 mg/dL B-Type Natriuretic Peptide 32.58 0-100 pg/mL EXAM: XR Chest, 1 View FINDINGS: LUNGS AND PLEURAL SPACES: Unremarkable. No consolidation. No pneumothorax. HEART: Unremarkable. No cardiomegaly. MEDIASTINUM: Unremarkable. Normal mediastinal contour. BONES/JOINTS: Unremarkable. No acute fracture. IMPRESSION: No acute cardiopulmonary process. Assessment/Plan Assessment/Plan Assessment: Symptomatic bradycardia, Possible pericarditis, Chest pain, ETOH dependance, Plan: Admit to Tele, Cardiology consult, ECHO, TSH, A1c, Lipid panel, NPO until cleared by cardiology, Supplemental vitamins, Plan discussed with: Patient My Orders Orders - ZAHRA HINES RETURNING OFFICER Procedure Category Date Status Time * Cardiology Consult CONS 03/18/25 Transmitted 09:49 Admit ADMIT 03/18/25 Transmitted 09:49 Code Status CODE 03/18/25 Transmitted 09:49 Hydrocodone-Acet PHA 03/18/25 Logged 5/325mg Tab ([place] 10:00 Ondansetron Hcl PHA 03/18/25 Logged (Zofran) 10:00 Docusate Sodium PHA 03/18/25 Logged Capsule (Colace 10:00 Complete Blood Count LAB 03/19/25 Verified 04:00 Comprehensive LAB 03/19/25 Verified Metabolic Panel 04:00 Npo (Nothing By DIET 03/18/25 Transmitted Mouth) Diet Lunch Condition: Serious [facility] 03/18/25 In Process 09:49 Acetaminophen Tablet PHA 03/18/25 Logged (Tylenol Tablet) 10:00 Morphine Sulfate PHA 03/18/25 Logged Injection 10:00 Nitroglycerin PHA 03/18/25 Logged Sublingual (Ntrostat 10:00 Morphine Sulfate PHA 03/18/25 Logged Injection 10:00 Stat Ekg For Chest [facility] 03/18/25 In Process Pain 09:49 Notify Of Changes [facility] 03/18/25 In Process From Base 09:49 Postal Inspector For [facility] 03/18/25 In Process 24 Hours 09:49 Emergency Dysrhythmia [facility] 03/18/25 In Process Protocol 09:49 Rhythm Strips Once [facility] 03/18/25 In Process Every Shift 09:49 Oxygen By Nasal RT 03/18/25 Transmitted Cannula 09:49 Echo 2d Mode Cardiac US 03/18/25 Logged DOP 09:57 Lipid Panel LAB 03/18/25 Verified 09:58 Thyroid Stimulating LAB 03/18/25 Verified Hormone 09:58 Hemoglobin A1c LAB 03/18/25 Verified 09:58 Date of Service: Mar 18, 2025 Billing Provider: ZAHRA HINES Common Visit Codes: [id number] INP/OBS CARE (MOD) ZAHRA HINES Mar 18, 2025 10:06
[2025-03-18 10:33] LABS: Triglycerides 48 mg/dL (< 150)
[2025-03-18 10:34] LABS: LDL Cholesterol 74 mg/dL (< 100)
[2025-03-18 10:35] LABS: Cholesterol 140 mg/dL (< 200); HDL Cholesterol 57 mg/dL (40-59)
[2025-03-18] MEDS: MULTIPLE VITAMIN TAB PO SCH (11:50)
[2025-03-18] MEDS: THIAMINE 100mg/ml INJ (200mg/2ml VIAL) IV SCH (11:51)
--- NOTE | 2025-03-18 11:57 | DVHSR ---
APPROVED REPORT EXAM: Two-dimensional and M-mode echocardiogram with Doppler and color Doppler. Blood Pressure: 106/44 mmHg INDICATION Symptomatic bradycardia RISK FACTORS Height: 5'7", Weight: 119 DIMENSIONS LVDd4.5 (3.8-5.7cm)LA (2D)4.2 (1.9-4.0cm)Aortic Root3.1 (2.0-3.7cm) LVDs3.1 (2.5-4.0cm)LA (MM) (1.9-4.0cm)Aortic Cusp Exc1.6 (1.5-2.0cm) EF (%) 60.0 (55-70%)Rt. Atrium3.9 (1.9-4.0cm)Asc. Aorta cm IVSd0.8 (0.7-1.1cm)RV (D) (1.8-2.4cm) PWd0.8 (0.7-1.1cm) Mitral Valve MitralMitral Stenosis E wave0.79m/sMV Mean GR.mmHg A wave0.58m/sMV Peak GR.mmHg E/A ratio1.42D MVAcm2 DECEL [id number] 1/2 Timems Aortic Valve Aortic ValveAortic Stenosis V10.90m/Lizy Mean GR.2mmHg V21.08m/Lizy Peak GR.5mmHg LVOT Diameter1.9 (1.8-2.4cm)Doppler AVA2.36cm2 Pulmonic Valve V20.84m/s Tricuspid Valve TR Velocity2.54m/s [id number] Other Information Quality : Rhythm : Bradycardia Conclusion lvef 65% normal rv function normal atria Mitral valve prolpase noted, mild to moderate mitral regurg (not well seen on this study)
[2025-03-18] MEDS: FOLIC ACID 1 MG in D5W 5% 50 ML INJ SCH (12:03)
[2025-03-18] MEDS: MORPHINE SULFATE INJ 2 MG/ml SYRG IV PRN (13:48)
[2025-03-18] MEDS: ONDANSETRON HCL 4 MG/2 ML VIAL IV PRN (13:49)
[2025-03-18 14:28] VITALS: BP 130/77; PULSE 53; RESP 14; TEMP 97.9
[2025-03-18] MEDS ORDERED: IBUP-1455 PO (14:49)
--- NOTE | 2025-03-18 15:18 | DVHINCON2 ---
Date Seen: Mar 18, 2025 Referring Physician YULISSA Ramon Reason for Consultation Bradycardia, chest pain History of Present Illness This is a 40-year-old female who presented to the emergency room via EMS with a chief complaint of chest pain since 199. The patient complains of progressive chest pain described as substernal, nonradiating, sharp in nature, intermittent, worse with inspiration, and associated with some palpitations. Rates the chest pain as 4/10. She underwent multiple 12 lead electrocardiogram revealing a sinus bradycardia rhythm at [address]-elevation suggestive of acute pericarditis. Serial troponin levels x2 are negative. Of note, the patient reports a recent cold-like symptoms approximately 3 weeks ago including productive cough and runny nose. Significant medical history includes history of acute pericarditis, tobacco use including 7.5 pack-years, and alcohol use on the weekends. Past Medical History Past medical history reviewed. No other significant than mentioned above. Past Surgical History Past surgical history reviewed. No other significant than mentioned above. Family History: FH: cancer G8 MOTHER G8 FATHER Family History Family history reviewed. Denies CV disease. Social History Admits to tobacco use, one pack of cigarettes every two days for 15 years. Admits to alcohol use on Fridays, Saturdays, and Sundays including Tequila shots x4/day and beers x 2/day. Admits to cannabinoid use. Allergies: Coded Allergies: NO KNOWN ALLERGIES (Unverified , 10/10/20) Home Meds Reported Medications Ibuprofen Micronized (Ibuprofen) 800 Mg Tab, 1 TAB PO TID PRN for pain 03/18/25 Home Meds Ibuprofen OTC Current Medications Current Medications Medications (Trade) Dose Ordered Sig/Dionne Route PRN Reason Start Time Stop Time Status Last Admin Acetaminophen/ Hydrocodone Bitart (Bland 5/325MG Tab) 1 tab Q4HP PRN PO MODERATE PAIN (4-6 PAIN SCALE) 03/18/25 10:00 Ondansetron HCl (Zofran) 4 mg Q4HP PRN IV NAUSEA / VOMITING 03/18/25 10:00 03/18/25 13:49 Docusate Sodium (Colace Capsule) 100 mg BIDPRN PRN PO FOR CONSTIPATION 03/18/25 10:00 Acetaminophen (Tylenol Tablet) 650 mg Q6HP PRN PO PAIN SCALE 1-3 OR TEMP>100.4 03/18/25 10:00 Morphine Sulfate 2 mg Q4HPRN PRN IV SEVERE PAIN (7-10 PAIN SCALE) 03/18/25 10:00 03/18/25 13:48 Nitroglycerin (Ntrostat Sublingual) 0.4 mg Q5MINP PRN SL FOR CHEST PAIN 03/18/25 10:00 Morphine Sulfate 2 mg Q30M PRN IV FOR CHEST PAIN 03/18/25 10:00 Folic Acid 1 mg/ Dextrose 50.2 ml @ 200.8 mls/ hr DAILY INJ 03/18/25 10:00 03/18/25 12:03 Thiamine HCl 100 mg DAILY IV 03/18/25 10:00 03/18/25 11:51 Multivitamins (Mvi Tab) 1 tab DAILY PO 03/18/25 10:00 03/18/25 11:50 Review of Systems Constitutional: No symptom reported Ears, Nose, & Throat: No symptom reported Eyes: No symptom reported Neurological: No symptoms reported Pulmonary/Respiratory: No symptom reported Cardiovascular: Chest pain, palpitations Gastrointestinal: No symptom reported Genitourinary: No symptom reported Musculoskeletal: No symptom reported Skin: No symptom reported Psychiatric: No symptom reported Endocrine: No symptom reported Hemotologic/Lymphatic: No symptom reported Vital Signs Vital Signs Date Time Temp Pulse Resp B/P (MAP) Pulse Ox O2 Delivery O2 Flow Rate FiO2 03/18/25 14:28 97.9 53 14 130/77 (94) 97.9 03/18/25 13:29 99 03/18/25 08:00 Room Air* 0 21 Physical Exam General Appearance: Cooperative. Well developed. Well nourished. In no acute distress Head Exam: Normal inspection Neck Exam: Normal inspection. Non-tender. Normal alignment Pulmonary/Respiratory: Chest non-tender. Clear bilateral breath sounds Cardiovascular/Chest: Regular rate and rhythm. S1, S2. Diffuse ST elevation suggestive of acute pericarditis. No murmurs. No JVD. Peripheral Pulses: 2+ Radial (R). 2+ Radial (L). 2+ Pedal (R). 2+ Pedal (L) Abdominal Exam: Normal bowel sounds. Soft. Nontender. No hepatospenomegaly. No masses Ankle Exam: Negative ankle edema Lower extremities: Negative lower extremity edema Neuro/Mental Status: A&O x4. Coherent Thoughts/Psych: Normal thought pattern. Appropriate mood and affect. Good j udgement and insight Appearance: In no acute distress Skin Exam: Normal inspection. Normal color. Warm. Dry Labs/Diagnostic Data Labs Test 03/18/25 07:30 03/18/25 06:33 Range/Units Troponin I High Sensitivity 3 L </=34 ng/L White Blood Count 8.7 4.4-10.8 10^3/uL Red Blood Count 4.23 4.0-5.20 10^6/uL Hemoglobin 14.2 12.2-16.2 g/dL Hematocrit 41.9 36.0-46.0 % Mean Corpuscular Volume 99.2 80.0-100.0 fL Mean Corpuscular Hemoglobin 33.5 H 28.0-32.0 pg Mean Corpuscular Hemoglobin Concent 33.8 32.0-36.0 g/dL Red Cell Distribution Width 14.5 H 11.8-14.3 % Platelet Count 145 140-450 10^3/uL Mean Platelet Volume 9.1 6.9-10.8 fL Neutrophils (%) (Auto) 62.7 37.0-80.0 % Lymphocytes (%) (Auto) 29.6 10.0-50.0 % Monocytes (%) (Auto) 6.6 0.0-12.0 % Eosinophils (%) (Auto) 0.6 0.0-7.0 % Basophils (%) (Auto) 0.5 0.0-2.0 % Neutrophils # (Auto) 5.4 1.6-8.6 10 ^3/uL Lymphocytes # (Auto) 2.6 0.4-5.4 10 ^3/uL Monocytes # (Auto) 0.6 0-1.3 10 ^3/uL Eosinophils # (Auto) 0.1 0-0.8 10 ^3/uL Basophils # (Auto) 0 0-0.2 10 ^3/uL Nucleated Red Blood Cells 0.1 % Sodium Level 141 136-145 mmol/L Potassium Level 4.1 3.5-5.1 mmol/L Chloride Level 110 H 98-107 mmol/L Carbon Dioxide Level 23 20-31 mmol/L Anion Gap 8 5-15 Blood Urea Nitrogen 9 9-23 mg/dL Creatinine 0.72 0.550-1.02 mg/dL Glomerular Filtration Rate Calc 107 >90 mL/min BUN/Creatinine Ratio 12.5 10.0-20.0 Serum Glucose 107 H 74-106 mg/dL Hemoglobin A1c 5.3 <5.7 % A1C Calcium Level 8.9 8.7-10.4 mg/dL B-Type Natriuretic Peptide 32.58 0-100 pg/mL Triglycerides Level 48 < 150 mg/dL Cholesterol Level 140 < 200 mg/dL LDL Cholesterol 74 < 100 mg/dL HDL Cholesterol 57 40-59 mg/dL Thyroid Stimulating Hormone (TSH) 2.49 0.55-4.78 uIU/mL Assessment Acute pericarditis Palpitations rule out tachyarrhythmias Mitral valve prolapse with mild to moderate regurgitation, newly diagnosed Asymptomatic sinus bradycardia Nicotine/alcohol dependence Cannabinoid use Plan/Recommendation (Dr. Noel) Transthoracic echocardiogram revealed LVEF 65% with normal RV function, normal atria, mitral valve prolapse noted, [id number] mitral regurgitation. The patient presents with asymptomatic bradycardia, avoid AV jamal blocking agents. She also presents with the acute pericarditis likely viral in nature given recent flu-like symptoms. Obtain ESR and CRP levels. Initiate ibuprofen 600 mg TID x 1-2 weeks, colchicine QD x 3 months, PPI QD, and exercise restriction. Follow-up in the outpatient setting with a primary nurse unit manager within 2-3 weeks post discharge given newly diagnosed MVP and for an outpatient event monitor given complains of palpitations. Counseled on tobacco, alcohol, and cannabinoid cessation. Thank you for allowing us to participate in this patient's care. Please call if you have any questions or concerns. This medical document was created using an electronic medical record system with voice recognition software and computerized dictation system. Although this document has been carefully reviewed, there might still be some phonetic and typographical errors. Occasional wrong-word or ``sound-alike substitutions may have occurred due to the inherent limitations of voice recognition software. These areas are purely typographical due to imperfections of the software programs and do not reflect any compromise in the patient's medical care. Please read the chart carefully and recognize, using context, where these substitutions have occurred. Plan discussed with: Patient, Other NYHA Physical activity limitations: NA Date of Service: Mar 18, 2025 Billing Provider: BIPIN TUCKER Cardiology Common Codes: [id number] INP/OBS CARE (High) BIPIN TUCKER Mar 18, 2025 15:18
[2025-03-18 16:04] LABS: Amphetamine Screen, Urine Neg (NEGATIVE); Barbiturate Scree,Urine Neg (NEGATIVE); Benzodiazephine Screen, Urine Neg (NEGATIVE); Cannabinoid Screen, Urine Pos (NEGATIVE); Cocaine Screen, Urine Neg (NEGATIVE); Opiate Scree,Urine Neg (NEGATIVE); Phencyclidine Screen, Urine Neg (NEGATIVE)
[2025-03-18 16:25] LABS: Magnesium 2.1 mg/dL (1.6-2.6)
[2025-03-18 16:33] LABS: Blood Alcohol < 3.0 mg/dL (<10)
[2025-03-18 16:47] LABS: Erythrocyte Sedimentation Rate 7 mm/hr (0-20)
[2025-03-18] MEDS: COLCHICINE 0.6 MG CAP PO ONE (18:12)
[2025-03-18] MEDS: PANTOPRAZOLE 40 MG TAB PO ONE (18:12)
[2025-03-18 20:16] VITALS: BP 149/88; PULSE 62; RESP 18; TEMP 97.9; O2SAT 96
[2025-03-18] MEDS: IBUPROFEN 600 MG TAB PO SCH (20:55)
[2025-03-19 04:47] LABS: Basophils # (auto) 0 10 ^3/uL (0-0.2); Basophils % (auto) 0.4 % (0.0-2.0); Eosinophils # (auto) 0.1 10 ^3/uL (0-0.8); Hemoglobin 13.3 g/dL (12.2-16.2); Lymphocytes # (auto) 3.5 10 ^3/uL (0.4-5.4); Lymphocytes % (auto) 50.3 % (10.0-50.0); Mean Corpuscular Hemoglobin 33.6 pg (28.0-32.0); Mean Corpuscular Hgb Conc. 34.2 g/dL (32.0-36.0); Mean Corpuscular Volume 98.3 fL (80.0-100.0); Monocytes # (auto) 0.6 10 ^3/uL (0-1.3); Neutrophils # (auto) 2.7 10 ^3/uL (1.6-8.6); Neutrophils % (auto) 39.3 % (37.0-80.0); Nucleated Red Blood Cells % 0.1 %; Platelet Count (auto) 151 10^3/uL (140-450); Red Blood Cells 3.97 10^6/uL (4.0-5.20); Red Cell Distribution Width 14.4 % (11.8-14.3); White Blood Cell 6.9 10^3/uL (4.4-10.8)
[2025-03-19 05:00] LABS: Alanine Aminotransferase 21 U/L (7-40); Albumin 4.2 g/dL (3.2-4.8); Alkaline Phosphatase 71 U/L (46-116); Anion Gap 7 (5-15); Aspartate Aminotransferase 16 U/L (<34); BUN/Creatinine Ratio 10.8 (10.0-20.0); Calcium 9.5 mg/dL (8.7-10.4); Carbon Dioxide 23 mmol/L (20-31); Glucose 90 mg/dL (74-106); Potassium 4.3 mmol/L (3.5-5.1); Sodium 143 mmol/L (136-145); Total Protein 6.3 g/dL (5.7-8.2)
[2025-03-19 05:01] LABS: Blood Urea Nitrogen 7 mg/dL (9-23); Chloride 113 mmol/L (98-107)
[2025-03-19] MEDS: PANTOPRAZOLE 40 MG TAB PO SCH (05:13)
[2025-03-19 08:34] VITALS: BP 114/67; PULSE 61; RESP 22; TEMP 98.1; O2SAT 98
[2025-03-19] MEDS: COLCHICINE 0.6 MG CAP PO SCH (10:38)
--- NOTE | 2025-03-19 12:44 | ECG ---
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
[2025-03-19 13:02] VITALS: BP 119/71; PULSE 61; RESP 16; TEMP 98.3; O2SAT 96
[2025-03-19] MEDS ORDERED: IBUP1TAB5 PO (13:06)
[2025-03-19] MEDS ORDERED: COLC1CAP PO (13:07)
--- NOTE | 2025-03-19 13:11 | DVHDS2 ---
Discharge Summary Date of Admission Mar 18, 2025 at 09:49 Date of Discharge: Mar 19, 2025 Labs/Diagnostic Data: Laboratory Results Test 03/19/25 04:26 03/18/25 15:47 03/18/25 15:43 03/18/25 07:30 White Blood Count 6.9 10^3/uL (4.4-10.8) Red Blood Count 3.97 10^6/uL (4.0-5.20) Hemoglobin 13.3 g/dL (12.2-16.2) Hematocrit 39.0 % (36.0-46.0) Mean Corpuscular Volume 98.3 fL (80.0-100.0) Mean Corpuscular Hemoglobin 33.6 pg (28.0-32.0) Mean Corpuscular Hemoglobin Concent 34.2 g/dL (32.0-36.0) Red Cell Distribution Width 14.4 % (11.8-14.3) Platelet Count 151 10^3/uL (140-450) Mean Platelet Volume 9.3 fL (6.9-10.8) Neutrophils (%) (Auto) 39.3 % (37.0-80.0) Lymphocytes (%) (Auto) 50.3 % (10.0-50.0) Monocytes (%) (Auto) 9.0 % (0.0-12.0) Eosinophils (%) (Auto) 1.0 % (0.0-7.0) Basophils (%) (Auto) 0.4 % (0.0-2.0) Neutrophils # (Auto) 2.7 10 ^3/uL (1.6-8.6) Lymphocytes # (Auto) 3.5 10 ^3/uL (0.4-5.4) Monocytes # (Auto) 0.6 10 ^3/uL (0-1.3) Eosinophils # (Auto) 0.1 10 ^3/uL (0-0.8) Basophils # (Auto) 0 10 ^3/uL (0-0.2) Nucleated Red Blood Cells 0.1 % Sodium Level 143 mmol/L (136-145) Potassium Level 4.3 mmol/L (3.5-5.1) Chloride Level 113 mmol/L (98-107) Carbon Dioxide Level 23 mmol/L (20-31) Anion Gap 7 (5-15) Blood Urea Nitrogen 7 mg/dL (9-23) Creatinine 0.65 mg/dL (0.550-1.02) Glomerular Filtration Rate Calc 113 mL/min (>90) BUN/Creatinine Ratio 10.8 (10.0-20.0) Serum Glucose 90 mg/dL (74-106) Calcium Level 9.5 mg/dL (8.7-10.4) Total Bilirubin 1.0 mg/dL (0.2-1.0) Aspartate Amino Transferase (AST) 16 U/L (<34) Alanine Aminotransferase (ALT) 21 U/L (7-40) Alkaline Phosphatase 71 U/L (46-116) Total Protein 6.3 g/dL (5.7-8.2) Albumin 4.2 g/dL (3.2-4.8) Erythrocyte Sedimentation Rate 7 mm/hr (0-20) Magnesium Level 2.1 mg/dL (1.6-2.6) C-Reactive Protein High Sensitivity 0.30 mg/dL (<1.0) Plasma/Serum Blood Alcohol < 3.0 mg/dL (<10) Urine Opiates Screen Neg (NEGATIVE) Urine Fentanyl Screen Pos (NEGATIVE) Urine Barbiturates Screen Neg (NEGATIVE) Urine Phencyclidine Screen Neg (NEGATIVE) Urine Amphetamines Screen Neg (NEGATIVE) Urine Benzodiazepines Screen Neg (NEGATIVE) Urine Cocaine Screen Neg (NEGATIVE) Urine Cannabinoids Screen Pos (NEGATIVE) Troponin I High Sensitivity 3 ng/L (</=34) Test 03/18/25 06:33 Hemoglobin A1c 5.3 % A1C (<5.7) B-Type Natriuretic Peptide 32.58 pg/mL (0-100) Triglycerides Level 48 mg/dL (< 150) Cholesterol Level 140 mg/dL (< 200) LDL Cholesterol 74 mg/dL (< 100) HDL Cholesterol 57 mg/dL (40-59) Thyroid Stimulating Hormone (TSH) 2.49 uIU/mL (0.55-4.78) Other Laboratory Tests 03/19/25 04:26 Brief Hx & Hospital Course: Final diagnoses: Acute pericarditis Goiter Asymptomatic bradycardia Mitral valve prolapse Alcohol dependence The patient is a 40-year-old female who came with chest pain that she had since yesterday morning EKG shows diffuse ST segment elevation Cardiology recommended to start NSAIDs and colchicine The echocardiogram was normal She also said that she had a goiter for 2 years but she has not been able to follow up with the doctor TSH here is normal Her labs are otherwise normal Offered the patient to stay in the hospital and have workup for the goiter with an ultrasound and possibly with a iodine scan however she declined and she said she would like to go home today She says she just got established with a new PCP and she is going to see him in few days and therefore she was encouraged to go see the doctor as soon as possible and get a referral to see Endocrinology For the acute pericarditis she will be taking colchicine and ibuprofen as needed Stable for discharge Condition at Discharge: Stable Final Diagnosis/Problems List Acute pericarditis Goiter Asymptomatic bradycardia Mitral valve prolapse Alcohol dependence Discharge Disposition: Home SNF Discharge Will this Physician continue t: No Discharge Instruct/Medications Diet: Regular Activity: No Restrictions, As Tolerated Follow Up/Referral: PCP as soon as possible Follow up with endocrinology as outpatient as soon as possible Medications: Colchicine 0.6 mg once a day Ibuprofen 600 mg Q 8 hours p.r.n. Discharge Statement: "Patient was advised to return to the ER or call 911 if any headaches, dizziness, shortness of breath, chest pain, abdominal pain, bleeding, fevers, or worsening of medical condition. Patient was counseled about treatment plan, medications, possible side effects, patientverbalized understanding. All questions were answered to the best of my ability. This discharge took greater then 30 minutes in planning, reviewing documentation, counseling the patient, and discussing with other team members." ASSESSMENT ASSESSMENT Assessment Acute pericarditis Goiter Asymptomatic bradycardia Mitral valve prolapse Alcohol dependence Date of Service: Mar 19, 2025 Billing Provider: NIC UMANA MD Common Visit Codes: [id number] DISCH DAY >30min NIC UMANA MD Mar 19, 2025 13:11
[2025-03-19 13:47] VITALS: BP 119/71; PULSE 75; RESP 15; TEMP 98.2; O2SAT 98
== END 2025-03-19 14:06 | disposition home or self-care (01) | DRG 207 ==
LOC: ER 06:05 → EDBD 06:05 → ER 07:10 → OVERFLOW 09:49
PROVIDERS: ADMIT Internal Medicine Geriatric Medicine; ATTEND Internal Medicine Geriatric Medicine
DX: I30.9 Acute pericarditis, unspecified (principal); I44.1 Atrioventricular block, second degree; E04.9 Nontoxic goiter, unspecified; F17.210 Nicotine dependence, cigarettes, uncomplicated; I34.0 Nonrheumatic mitral (valve) insufficiency; R00.1 Bradycardia, unspecified; I34.1 Nonrheumatic mitral (valve) prolapse; F10.20 Alcohol dependence, uncomplicated; Y90.0 Blood alcohol level of less than 20 mg/100 ml
CPT/HCPCS: 36415; 71045; 80048; 80053; 80061; 80307; 80320; 83036; 83735; 83880; 84443; 84484; 85025; 85652; 86141; 93005; 93306; 96361; 96374; 99291; G0378; J1885; J7060